=== PATIENT | male | born 1955 | race Caucasian/White ===

== ENCOUNTER 2017-09-27 10:08 | Emergency (ER) | payer MEDICARE ==
[~2017-09-27] VITALS: Ht 180.3 cm; Wt 122.0 kg
[~2017-09-27 10:08] MED LIST: ALEVE220 MG PO; ASPIRIN81 MG PO; CRESTOR10 MG PO; FISH OIL1000 MG PO; FUROSEMIDE20 MG PO; GLIPIZIDE5 MG PO; KLOR-CON M2020 MEQ PO; LORTAB 1010 MG PO; METFORMIN500 MG PO; METOPROL TAR25 MG PO; METOPROLOL50 MG OR; PLAVIX75 MG PO
[2017-09-27] MEDS ORDERED: LORTAB 1010 MG PO (11:20)
[2017-09-27] MEDS ORDERED: CEPHALEXIN500 MG PO (11:20)
[2017-09-27] MEDS ORDERED: BACTRIM DS1 TAB PO (11:20)
[2017-09-27 11:50] VITALS: BP 114/60
== END 2017-09-27 12:01 | disposition home or self-care (01) ==
LOC: ED 10:08
PROC: 0H96XZZ Drainage of Back Skin, External Approach (ICD-10-PCS; principal; 2017-09-27)
DX: L02.212 Cutaneous abscess of back [any part, except buttock and flank] (principal)

== ENCOUNTER 2017-09-28 11:40 | Emergency (ER) | payer MEDICARE ==
[~2017-09-28] VITALS: Ht 180.3 cm; Wt 122.0 kg
[~2017-09-28 11:40] MED LIST changes: +BACTRIM DS1 TAB PO; +CEPHALEXIN500 MG PO
[2017-09-28 12:55] VITALS: BP 135/77
== END 2017-09-28 12:55 | disposition home or self-care (01) ==
LOC: ED 11:40
DX: Z48.01 Encounter for change or removal of surgical wound dressing (principal)

== ENCOUNTER 2019-02-02 09:06 | Emergency (ER) | payer MEDICARE, MEDICAID ==
[~2019-02-02] VITALS: Ht 177.8 cm; Wt 114.0 kg
[~2019-02-02 09:06] MED LIST changes: +ALBUTEROL SUL0.083 % IN; +ASPIRIN325 MG PO; +CENTANY21 EX; +CLOPIDOGREL75 MG PO; +CRESTOR20 MG PO; +GABAPENTIN100 MG PO; +GLIPIZIDE10 MG PO; +IPRATROPIUM BR0.02 %; +NITRO-DUR0.4 MG/HR TD; +POTASSIUM CHLO10 MEQ PO; +QVAR80 MCG/ACT; +RAMIPRIL2.5 MG PO; +TEMAZEPAM30 MG PO; +TRICOR145 MG PO; +TRULICITY1.5 MG/0.5
[2019-02-02] MEDS ORDERED: ULTRAM50 M1 PO ×2 (11:21→14:01)
[2019-02-02] MEDS ORDERED: MEDDOSEPAK PO (11:21)
[2019-02-02 11:38] VITALS: BP 116/66
== END 2019-02-02 11:49 | disposition home or self-care (01) ==
LOC: ED 09:06
DX: M51.36 Other intervertebral disc degeneration, lumbar region (principal); M54.5 Low back pain; I10 Essential (primary) hypertension; Z95.5 Presence of coronary angioplasty implant and graft

== ENCOUNTER 2019-10-20 | Emergency (ER) | payer OTHER, MEDICARE ==
[~2019-10-20] MED LIST changes: +MEDDOSEPAK PO; +ULTRAM50 M1 PO
[2019-10-20] MEDS ORDERED: FLEXERIL PO (10:29)
[2019-10-20] MEDS ORDERED: ULTRAM50 M1 PO (10:29)
--- NOTE | 2019-11-05 10:44 | NUR ---
WE ATTEMPTED TO GET A CLEARANCE FROM DR KING ON MULTIPLE OCCASIONS. PER DR KING'S OFFICE PATIENT WAS A NO SHOW. WE ARE UNABLE TO PERFORM THE COLONOSCOPY WITHOUT CLEARANCE
[2019-12-15] MEDS ORDERED: METFORMIN500 M2 PO (13:56)
[2019-12-15] MEDS ORDERED: LASIX 20 MG TAB20 MG PO (13:56)
[2019-12-15] MEDS ORDERED: PROTONIX40 MG PO (13:57)
[2019-12-15] MEDS ORDERED: CLOPIDOGREL75 MG PO (13:57)
[2019-12-15] MEDS ORDERED: K-TABS10 MEQ PO (13:58)
[2019-12-15] MEDS ORDERED: GLIMEPIRIDE2 MG PO (13:59)
[2019-12-15] MEDS ORDERED: CYMBALTA60 MG PO (13:59)
== END 2019-10-20 10:49 | disposition home or self-care (01) | DRG 552 ==
DX: S33.5XXA Sprain of ligaments of lumbar spine, initial encounter (principal); J44.9 Chronic obstructive pulmonary disease, unspecified; E11.9 Type 2 diabetes mellitus without complications; I10 Essential (primary) hypertension; Z95.5 Presence of coronary angioplasty implant and graft; V49.40XA Driver injured in collision with unspecified motor vehicles in traffic accident, initial encounter

== ENCOUNTER 2019-12-13 | Emergency (ER) | payer MEDICARE, MEDICAID ==
[~2019-12-13] MED LIST changes: +FLEXERIL PO
[2019-12-13 11:08] LABS: HEMATOCRIT 42.3 % (39.0-50.0); HEMOGLOBIN 14.2 g/dl (14.0-18.0); IMMATURE GRANULOCYTES 1.3 % (0.0-5.0); MEAN CELL VOLUME 91.8 fL CALC (80.0-100.0); MEAN CORPUSCULAR HGB 30.8 pG CALC (26.0-32.0); MEAN CORPUSCULAR HGB CONC 33.6 g/dL CAL (32.0-36.0); NEUT# 5.99 thou/uL (1.82-7.42); RED BLOOD COUNT 4.61 mill/uL (4.70-6.10); RED CELL DISTRI WIDTH 12.9 % (11.5-15.5)
[2019-12-13 11:28] LABS: ALBUMIN 3.7 g/dL (3.2-5.0); ALKALINE PHOSPHATASE 106 u/l (38-126); BUN 16 mg/dL (8-23); BUN/CREATININE RATIO 28 (12-20 (CALC)); CHLORIDE 98 mmol/l (95-108); CREATININE 0.6 mg/dL (0.7-1.3); GFR > 60 ML/MIN (>=60 (CALC)); GFR FOR AFR.AMER. > 60 ML/MIN (>=60 (CALC)); POTASSIUM 4.7 mmol/l (3.5-5.1); SGOT/AST 23 u/l (19-48); SODIUM 131 mmol/l (137-146); TOTAL PROTEIN 6.9 g/dL (6.3-8.2)
[2019-12-13 11:29] LABS: ANION GAP 16 (6-22 (CALC)); BILIRUBIN, TOTAL 1.1 mg/dL (0.0-1.4); CARBON DIOXIDE 22 mmol/l (22-30)
[2019-12-13 12:29] LABS: URINE BILIRUBIN - DIPSTICK NEGATIVE (NEGATIVE); URINE BLOOD DIPSTICK NEGATIVE (NEGATIVE); URINE COLOR YELLOW; URINE GLUCOSE - DIPSTICK >=1000 mg/dL (NEGATIVE); URINE KETONE 15 mg/dL (NEGATIVE); URINE LEUK ESTERASE NEGATIVE (NEGATIVE); URINE NITRITE - DIPSTICK NEGATIVE (Negative); URINE PROTEIN - DIPSTICK NEGATIVE (NEG-TRACE); URINE UROBILINOGEN - DIPSTICK 0.2 E.U./dL (0.2)
[2019-12-15] MEDS ORDERED: METFORMIN500 M2 PO (13:56)
[2019-12-15] MEDS ORDERED: LASIX 20 MG TAB20 MG PO (13:56)
[2019-12-15] MEDS ORDERED: CLOPIDOGREL75 MG PO (13:57)
[2019-12-15] MEDS ORDERED: PROTONIX40 MG PO (13:57)
[2019-12-15] MEDS ORDERED: K-TABS10 MEQ PO (13:58)
[2019-12-15] MEDS ORDERED: GLIMEPIRIDE2 MG PO (13:59)
[2019-12-15] MEDS ORDERED: CYMBALTA60 MG PO (13:59)
== END 2019-12-13 14:56 | disposition home or self-care (01) ==
PROVIDERS: Family Medicine
DX: R06.02 Shortness of breath (principal); R10.84 Generalized abdominal pain; E11.9 Type 2 diabetes mellitus without complications; I10 Essential (primary) hypertension; J44.9 Chronic obstructive pulmonary disease, unspecified; Z20.828 Contact with and (suspected) exposure to other viral communicable diseases

== ENCOUNTER 2019-12-16 | Inpatient (IN) | payer MEDICARE, MEDICAID ==
--- NOTE | 2019-12-14 15:06 | NUR ---
PT TO ROOM VIA WC
--- NOTE | 2019-12-14 15:20 | NUR ---
PT CHANGED TO GOWN. MONITORS APPLIED. REPORTS CHEST PAIN LEFT UPPER CHEST SINCE 1000 TODAY. TOOK FAMOTADINE WITHOUT RELEIF. PAIN 5/10 CAUSING NAUSEA THIS MORNING BUT NONE NOW. PT HAS CARDIAC HISTORY.
[2019-12-14 15:31] LABS: HEMATOCRIT 40.9 % (39.0-50.0); HEMOGLOBIN 14.3 g/dl (14.0-18.0); IMMATURE GRANULOCYTES 1.9 % (0.0-5.0); MEAN CELL VOLUME 89.1 fL CALC (80.0-100.0); MEAN CORPUSCULAR HGB 31.2 pG CALC (26.0-32.0); NEUT# 8.55 thou/uL (1.82-7.42); RED BLOOD COUNT 4.59 mill/uL (4.70-6.10); RED CELL DISTRI WIDTH 13.1 % (11.5-15.5)
--- NOTE | 2019-12-14 15:39 | NUR ---
PT TOOK 325MG OF ASA 2 HOURS PRIOR TO ARRIVAL. BABY ASA HELD
[2019-12-14 15:44] LABS: ALBUMIN 3.5 g/dL (3.2-5.0); ALKALINE PHOSPHATASE 93 u/l (38-126); AMYLASE 61 u/l (30-110); ANION GAP 18 (6-22 (CALC)); BUN 21 mg/dL (8-23); BUN/CREATININE RATIO 24 (12-20 (CALC)); CARBON DIOXIDE 20 mmol/l (22-30); CHLORIDE 94 mmol/l (95-108); CREATININE 0.9 mg/dL (0.7-1.3); GFR > 60 ML/MIN (>=60 (CALC)); GFR FOR AFR.AMER. > 60 ML/MIN (>=60 (CALC)); LIPASE 85 u/l (23-300); POTASSIUM 4.8 mmol/l (3.5-5.1); SGOT/AST 23 u/l (19-48); SODIUM 127 mmol/l (137-146); TOTAL PROTEIN 6.9 g/dL (6.3-8.2)
[2019-12-14 15:51] LABS: BILIRUBIN, TOTAL 0.6 mg/dL (0.0-1.4)
[2019-12-14 15:55] LABS: MYOGLOBIN 62 ng/mL (0 - 121)
--- NOTE | 2019-12-14 16:25 | NUR ---
PT MEDICATED. GIVEN ICE CHIPS. URINE SENT TO LAB. PT RESTING COMFORTABLY ON STRETCHER.
[2019-12-14 17:00] LABS: URINE BILIRUBIN - DIPSTICK NEGATIVE (NEGATIVE); URINE BLOOD DIPSTICK NEGATIVE (NEGATIVE); URINE COLOR YELLOW; URINE GLUCOSE - DIPSTICK >=1000 mg/dL (NEGATIVE); URINE KETONE NEGATIVE (NEGATIVE); URINE LEUK ESTERASE NEGATIVE (NEGATIVE); URINE NITRITE - DIPSTICK NEGATIVE (Negative); URINE PH 5.5 (4.5-8.0); URINE PROTEIN - DIPSTICK 100 mg/dL (NEG-TRACE); URINE SPECIFIC GRAVITY 1.015; URINE UROBILINOGEN - DIPSTICK 0.2 E.U./dL (0.2)
--- NOTE | 2019-12-14 17:15 | NUR ---
ACCUCHECK DONE READ HIGH
[2019-12-14 17:20] LABS: URINE RBC 0-2 RBC/hpf (0-5)
--- NOTE | 2019-12-14 17:20 | NUR ---
TWO SETS OF BLOOD CULTURES DRAW AND SENT TO LAB
[2019-12-14 17:22] LABS: ACT PARTIAL THROMBO TIME 26.3 SECONDS (20.0-32.5); PROTHROMBIN TIME 10.9 SECONDS (9.0-12.5)
[2019-12-14 17:26] LABS: C-REACTIVE PROTEIN 1.4 mg/dL (0-0.9)
--- NOTE | 2019-12-14 17:55 | NUR ---
CENTRAL LINE STARTED IN RIGHT GROIN BY DR PRASAD
--- NOTE | 2019-12-14 18:30 | NUR ---
PT CONTINUES TO COMPLAIN OF BACK PAIN
--- NOTE | 2019-12-14 19:00 | NUR ---
REPORT GIVEN TO PAOLA MAGAÑA
--- NOTE | 2019-12-14 19:30 | NUR ---
PT SITTING UP ON SIDE OF BED HIS BACK HURTS TO LAY DOWN. MED RECON COMPLETED....PT QUIT TAKING HIS MEDS SEVERAL MONTHS AGO BECAUSE HE WASN'T ABLE TO GET UP IN THE MORNING.
--- NOTE | 2019-12-14 19:43 | NUR ---
attempted to call report. nurse will call back.
--- NOTE | 2019-12-14 20:18 | NUR ---
CALLED DR HIGGINBOTHAM AND UPDATED ON LACTIC ACID 3.0
--- NOTE | 2019-12-14 20:59 | NUR ---
SUSAN CALLED BACK FOR REPORT
--- NOTE | 2019-12-14 21:10 | NUR ---
TO ICU VIA STRETCHER WITH MONITOR/O2 @ 2LPM/MASK. PT AMBULATORY TO BED WITH ASSIST.
--- NOTE | 2019-12-14 21:15 | NUR ---
PT. ARRIVES VIA STRETCHER FROM ER. AMBULATORY WITH STEADY GAIT FROM ER STRETCHER TO ICU BED. INTRODUCED TO STAFF AND CALL LIGHT SYSTEM. PT. WITH MILD DYSPNEA ON EXERTION. AFEBRILE. PLACED ON MONITOR. SKIN WARM AND DRY. LUNG SOUNDS MORE DIMINISHED ON THE RIGHT. NO OTHER ADVENTITIOUS LUNG SOUNDS NOTED. PT. DENIES CP AT THIS TIME. C/O CHRONIC BACK PAIN. PT. ISOLATION FOR R/O COVID. BP/HR STABLE. SINUS ON THE MONITOR. CALL LIGHT WITHIN REACH. WILL CONTINUE TO [facility] MONITOR.
[2019-12-14 22:00] VITALS: BP 118/76
--- NOTE | 2019-12-14 22:45 | NUR ---
PT. PROVIDED WITH WATER AND [employer] CHOICE FROZEN MEAL AT THIS TIME. MEDICATED PER PHYSICIAN ORDERS. REMAINS IN ISOLATION FOR POSSIBLE COVID. RESPS REMAIN EVEN AND UNLABORED. CALL LIGHT REMIANS WITHIN REACH. WILL CONTINUE TO CLOSELY MONITOR.
[2019-12-14 23:00] VITALS: BP 116/66
[2019-12-15] VITALS (10 sets, daily range): BP systolic 82–124; BP diastolic 53–85
--- NOTE | 2019-12-15 00:30 | NUR ---
PT. MEDICATED PER PHYSICIAN ORDERS. REMAINS STABLE ON THE MONITOR IN SINUS RHYTHM. RESPS EVEN AND UNLABORED. PT. REMAINS WITH NOVOA. CALL LIGHT WITHIN REACH. WILL CONTINUE TO [place] MONITOR.
--- NOTE | 2019-12-15 01:49 | NUR ---
PT. PROVIDED WITH INHALER AND SLEEPING PILL PER HIS REQUEST. DENIES OTHER COMPLAINT OR NEEDS AT THIS TIME. CALL LIGHT REMAINS WITHIN REACH.
--- NOTE | 2019-12-15 02:15 | NUR ---
PT. RESTING IN BED. LEADS REPLACED AT THIS TIME. BP/HR STABLE. PT. VOICES NO COMPLAINTS OF NEEDS. CALL LIGHT REMAINS WITHIN REACH. WILL CONTINUE TO CLOSELY MONITOR.
--- NOTE | 2019-12-15 04:05 | NUR ---
PT. RESTING ON RT. SIDE IN NO DISTRESS. SKIN REMAINS WARM AND DRY. AFEBRILE. BP/HR STABLE. CALL LIGHT REMAINS WITHIN REACH. VOICES NO COMPLAINTS OR NEEDS.
--- NOTE | 2019-12-15 05:00 | NUR ---
LABS OBTAINED AND SENT. PT. REMAINS STABLE, UNCHANGED.
[2019-12-15 05:51] LABS: HEMATOCRIT 41.6 % (39.0-50.0); HEMOGLOBIN 14.4 g/dl (14.0-18.0); IMMATURE GRANULOCYTES 2.7 % (0.0-5.0); MEAN CELL VOLUME 90.4 fL CALC (80.0-100.0); MEAN CORPUSCULAR HGB 31.3 pG CALC (26.0-32.0); MEAN CORPUSCULAR HGB CONC 34.6 g/dL CAL (32.0-36.0); NEUT# 8.9 thou/uL (1.82-7.42); RED BLOOD COUNT 4.6 mill/uL (4.70-6.10); RED CELL DISTRI WIDTH 13.3 % (11.5-15.5)
[2019-12-15 06:20] LABS: ALBUMIN 3.4 g/dL (3.2-5.0); ALKALINE PHOSPHATASE 94 u/l (38-126); ANION GAP 17 (6-22 (CALC)); BILIRUBIN, TOTAL 0.6 mg/dL (0.0-1.4); BUN 27 mg/dL (8-23); BUN/CREATININE RATIO 19 (12-20 (CALC)); CARBON DIOXIDE 19 mmol/l (22-30); CHLORIDE 96 mmol/l (95-108); CREATININE 1.4 mg/dL (0.7-1.3); GFR 51 ML/MIN (>=60 (CALC)); GFR FOR AFR.AMER. > 60 ML/MIN (>=60 (CALC)); POTASSIUM 4.8 mmol/l (3.5-5.1); SGOT/AST 21 u/l (19-48); SODIUM 128 mmol/l (137-146); TOTAL PROTEIN 6.4 g/dL (6.3-8.2)
--- NOTE | 2019-12-15 06:45 | NUR ---
REPORT RECEIVED FROM SUSAN MAGAÑA. VSS STABLE ON MONITOR. CARE ASSUMED.
--- NOTE | 2019-12-15 08:30 | NUR ---
PT SITTING UP ON SIDE OF BED AT THIS TIME. RESP ARE EVEN AND UNLABORED. PT IS ALERT AND ORIENTED X3. SHIFT ASSESSMENT COMPLETED AT THIS TIME. DR STEVENSON AT BEDSIDE. PT SET UP FOR AM MEAL AT THIS TIME WELL. IV PATENT X2. CALL LIGHT IN REACH. WILL CONTINUE TO MONIOTR.
--- NOTE | 2019-12-15 10:00 | NUR ---
PT PROVIDED AND ASSISTED WITH AM CARE BY MANAGER SUPPLY AND ASSISTED TO SIT UP IN BEDSIDE CHAIR. RESP ARE EVEN AND UNLABORED. NO DISTRESS NOTED. VSS ON MONITOR. CALL LIGHT IN REACH. WILL CONTINUE TO MONITOR
--- NOTE | 2019-12-15 10:30 | NUR ---
PT PERFORMANCE IMPROVEMENT CONSULTANT LIGHT REQUESTING PAIN MEDICATION
--- NOTE | 2019-12-15 11:00 | NUR ---
BLOOD SUGAR 555 DR STEVENSON NOTIFIED NEW ORDERS RECEIVED.
--- NOTE | 2019-12-15 11:30 | NUR ---
PHONED SPOUSE IDALMIS TO UPDATE HOME MEDICATION LIST
--- NOTE | 2019-12-15 12:00 | NUR ---
PT MEDICATED PER MAR WITH PAIN MEDICAITON AND INSULIN. PT SET UP FOR NOON MEAL. PT ENCOURAGE TO ELEVATE FEET DU TO SWEELING. PT VERBALIZED UNDERSTANDING. PT LAYED BACK IN BED.
--- NOTE | 2019-12-15 12:23 | NUR ---
PT SEEN TO BE STANDING UP NEXT TO BED AND THEN SITTING UP IN CHAIR AT BEDSIDE WITH FEET DANGLING.
--- NOTE | 2019-12-15 13:53 | NUR ---
PT RESTING IN BED WITH EYES CLOSED AT THIS TIME. RESO ARE EVEN AND UNLABORED. VSS ON MONITOR. CALL LIGHT IN REACH. WILL CONTINUE TO MONITOR.
--- NOTE | 2019-12-15 16:00 | NUR ---
PT SITTING UP ON SIDE OF BED. RESP ARE EVEN AND UNLABORED. VSS ON MONITOR. CALL LIGHT IN REACH. WILL CONTINUE TO MONITOR.
--- NOTE | 2019-12-15 17:22 | NUR ---
DR STEVENSON NOTIFIED OF ACCUCHECK OF 442, RBVO FOR 15UNITS OF NOVOLOG.
--- NOTE | 2019-12-15 17:59 | NUR ---
PT SITTING UP ON SIDE OF BED. PT REPORTS THAT PAIN IS MUCH IMPROVED AT THIS TIME. RESP ARE EVEN AND UNLABORED. VSS ON MONITOR. CALL LIGHT IN REACH. WILL CONTINUE TO MONITOR.
--- NOTE | 2019-12-15 18:07 | NUR ---
PT ASSISTED TO BATHROOM FOR BM. PT REFUSED TO USE BSC.
--- NOTE | 2019-12-15 18:45 | NUR ---
REPORT FROM Tyrone GREER RN. ASSUMED PT. CARE.
--- NOTE | 2019-12-15 19:15 | NUR ---
PT. FOUND SITTING UP IN BED IN NO DISTRESS. RESPS EVEN AND UNLBAORED. DYSPNEA ON EXERTION. DIMINISHED LUNG SOUNDS THROUGHOUT. SPO2 98% ON 2L VIA NC. BOWEL SOUNDS ACTIVE. PT. REPORTS NO BM TODAY. REPORTS 5/10 BACK PAIN AT THIS TIME. REQUESTING HIS SLEEPING PILL AT 8;30. UPDATED THAT I WOULD GIVE HIM HIS SLEEPING PILL WITH HIS 9PM MEDS VERBALIZES UNDERSTANDING. CALL LIGHT WITHIN REACH. PT. LOWER EXT EDEMA APPEARS IMPROVED FROM PRIOR NIGHT. DISTIL PULSES INTACT. WILL CONTINUE TO CLOSELY MONITOR.
--- NOTE | 2019-12-15 20:15 | NUR ---
PT. COVID SWAB NEGATIVE. MADE AWARE. MOVED FROM ISOLATION ROOM #2 TO ROOM #4 AT THIS TIME. IV REMOVED FROM LT. AC PER PATIENT REQUEST, REMAINS WITH CENTRAL LINE TO RT. FEMORAL. CALL LIGHT PLACED WITHIN REACH. WILL CONTINUE TO MONITOR.
--- NOTE | 2019-12-15 21:05 | NUR ---
ACCUCHECK READS HIGH. MADE AWARE, NEW ORDERS FOR INSULIN DRIP RECEIVED. WILL INITIATE WHEN CARDINAL PROFILES THE MEDICATION.
[2019-12-15 21:14] LABS: CREATININE 1.5 mg/dL (0.7-1.3); POTASSIUM 4.7 mmol/l (3.5-5.1)
--- NOTE | 2019-12-15 22:05 | NUR ---
PT. UPDATED ON CURRENT CONDITION AND PLAN FOR THE NIGHT. VERBALIZES UNDERSTANDING. PT. REMAINS STABLE. BP SLIGHTLY LOW AT 86/52. WILL CONTINUE TO MONITOR AND ASSESS BLOOD SUGAR EVERY HOUR ORDERED.
--- NOTE | 2019-12-15 23:09 | NUR ---
ACCUCHECK NOW 406. WILL CONTINUE AT 5 UNITS/HR.
[2019-12-16] VITALS (19 sets, daily range): BP systolic 73–111; BP diastolic 50–88
[~2019-12-16] MED LIST changes: +CYMBALTA60 MG PO; +GLIMEPIRIDE2 MG PO; +K-TABS10 MEQ PO; +LASIX 20 MG TAB20 MG PO; +METFORMIN500 M2 PO; +PROTONIX40 MG PO
--- NOTE | 2019-12-16 00:30 | NUR ---
PT. INTERMITTENTLY FOUND SITTING UP AT THE SIDE OF THE BED DROWSY AND UNSTEADY. ASSISTED BACK TO BED. RESPS EVEN AND UNLABORED. INSULIN DRIP INFUSING AT 4 UNITS/HR AT THIS TIME. WILL CONTINUE TO CLOSELY MONITOR. MD MADE AWARE OF LOWER BP. WILL BOLUS ORDERED.
--- NOTE | 2019-12-16 01:00 | NUR ---
ACCUCHECK NOW 287. INSULIN DRIP DECREASED TO 3 UNITS/HR. WILL CONTINUE TO CLOSELY MONITOR.
--- NOTE | 2019-12-16 01:18 | NUR ---
PT. REMAINS HYPOTENSIVE. MD MADE AWARE. CONTINUES ON INSULIN DRIP AT 4 UNITS/HR. NEW ORDERS RECEIVED FOR FLUID BOLUS. CALL LIGHT REMAINS WITHIN REACH. PT. INTERMITTENTLY WILL SIT UP AT THE SIDE OF THE BED, BUT IS DROWSY AND WOBBLY. ASSISTED BACK TO BED AND CONFERRED IMPORTANCE OF CONTINUING TO LAY DOWN AT THIS TIME DUE TO HIS BLOOD PRESSURE.
[2019-12-16 01:57] LABS: CREATININE 1.8 mg/dL (0.7-1.3); POTASSIUM 4.5 mmol/l (3.5-5.1)
--- NOTE | 2019-12-16 02:09 | NUR ---
ACCUCHECK NOW 246. WILL CONTINUE AT 3 UNITS/HR AT THIS TIME. PT. RESTING WITH EYES CLOSED LAYING ON RT. SIDE. NO DISTRESS. REMAINS HYPOTENSIVE. WILL CONTINUE TO MONITOR.
--- NOTE | 2019-12-16 04:02 | NUR ---
PT. REMAINS STABLE ON THE MONITOR SLEEPING ON HIS ABDOMEN. HE HAS REMOVED HIS OXYGEN AND HIS O2 SAT IS 88% AT THIS TIME. REMAINS AFEBRILE. FAN REMAINS IN PLACE. PT. HAS ALSO REMOVED IS GOWN AT THIS TIME. WILL CONTINUE TO MONITOR.
--- NOTE | 2019-12-16 04:50 | NUR ---
THIS RN AT BEDSIDE. PT. REMAINS DROWSY AND INTERMITTENTLY CONFUSED. PT. HAS REMOVED ALL LINES, GOWN AND BP CUFF. INSULIN DRIP CONTINUES AT 3 UNITS/HR AND FLUIDS AT KVO. PT REORIENTED TO SITUATION AND ALL MONITOR LINES REPLACED. SPO2 IS 96% ON 2L NC. REPOSITIONED FOR COMFORT. LABS OBTAINED FROM RT. FEMORAL CENTRAL LINE. WILL CONTINUE TO CLOSELY MONITOR.
[2019-12-16 05:45] LABS: CREATININE 1.9 mg/dL (0.7-1.3); POTASSIUM 4.9 mmol/l (3.5-5.1)
--- NOTE | 2019-12-16 06:04 | NUR ---
RT AT BEDSIDE TO PERFORM EKG AT THIS TIME.
--- NOTE | 2019-12-16 07:00 | NUR ---
PT RESTING IN BED WITH EYES CLOSED. AROUSES TO VERBAL STIMULI. PT IS ALERT AND OREINTED X3. SHIFT ASSESSMENT COMPLETED AT THIS TIME. IV PATENT X1. PT STATES THAT HE NEEDS A PAIN PILL. EXPLAINED THAT HIS BP IS STILL ON THE LOWER SIDE WILL REASSESS IN ONE HOUR. PT VERBALIZED UNDERSTANDING. CALL LIGHT IN REACH. WILL CONTINUE TO MONITOR.
--- NOTE | 2019-12-16 07:45 | NUR ---
PT SET UP FOR AM MEAL
--- NOTE | 2019-12-16 08:50 | NUR ---
DR STEVENSON AT BEDSIDE
--- NOTE | 2019-12-16 09:13 | NUR ---
LABS DRAWN FROM [facility].
--- NOTE | 2019-12-16 09:30 | NUR ---
NPTIFIED DR FIGUEROA VOICEMAIL LEFT
[2019-12-16 09:54] LABS: ALBUMIN 3.5 g/dL (3.2-5.0); BILIRUBIN, TOTAL 0.6 mg/dL (0.0-1.4); CREATININE 1.9 mg/dL (0.7-1.3); POTASSIUM 4.8 mmol/l (3.5-5.1); TOTAL PROTEIN 6.7 g/dL (6.3-8.2)
--- NOTE | 2019-12-16 09:58 | NUR ---
BROWNLEE CATHETER PLACED USING STERILE TECHNIQUE IMMEADIATE RETURN OF JD URINE. PT TOLERATED WELL.
[2019-12-16 11:41] LABS: URINE BLOOD DIPSTICK TRACE-INTACT (NEGATIVE); URINE COLOR YELLOW; URINE GLUCOSE - DIPSTICK NEGATIVE (NEGATIVE); URINE KETONE NEGATIVE (NEGATIVE); URINE LEUK ESTERASE TRACE (Negative); URINE NITRITE - DIPSTICK NEGATIVE (Negative); URINE PROTEIN - DIPSTICK 30 mg/dL (NEG-TRACE); URINE SPECIFIC GRAVITY >=1.030
--- NOTE | 2019-12-16 11:48 | NUR ---
PT SET UP FOR NOON MEAL THEN STATED HE NEEDED TO HAVE A BOWEL MOVEMENT PT RENEE TO AMBULATED TO BATHROOM INSTRUCTED TO USE CALL LIGHT FOR ASSISTANCE WHEN FINISHED.
[2019-12-16 11:58] LABS: URINE BILIRUBIN - DIPSTICK NEGATIVE (NEGATIVE); URINE CLARITY HAZY
[2019-12-16 12:05] LABS: URINE RBC 0-2 RBC/hpf (0-5)
[2019-12-16 12:06] LABS: URINE AMORPH SEDIMENT MODERATE hpf (NONE-FER)
--- NOTE | 2019-12-16 12:20 | NUR ---
PT REFUSING TO LEAVE RESTROOM UNTIL HE HAS BM.
--- NOTE | 2019-12-16 12:30 | NUR ---
PT PROVIDED WARM PRUNE JUICE AND MOM PER OCT.
--- NOTE | 2019-12-16 13:51 | NUR ---
PT ASSISTED BACK TO BED. NO BM AT THIS TIME. PT PLACED BACK ON MONITOR AND IVF. CALL LIGHT IN REACH. WILL CONTINUE TO MONITOR.
--- NOTE | 2019-12-16 14:31 | NUR ---
PT HEAD LIBRARIAN LIGHT DUE TO BEING COLD. PT ASSISTED TO LAY DOWN. WARM BLANKET PROVIDED. CALL LIGHT IN REACH. WILL CONTINUE TO MONITOR.
--- NOTE | 2019-12-16 15:47 | NUR ---
SPOKE TO IDALMIS AND UPDATED HER ON PATIENT STATUS
--- NOTE | 2019-12-16 15:49 | NUR ---
ASSUMED CARE FROM ARCHANA ALCANTAR. PT RESTING IN BED WITH EYES CLOSED. NO DISTRESS NOTED. WILL CONTINUE TO MONITOR
--- NOTE | 2019-12-16 15:56 | NUR ---
PT AMBULATED TO BATHROOM.
--- NOTE | 2019-12-16 16:00 | NUR ---
PT BACK TO BED FROM BATHROOM. NO DISTRESS NOTED. NO SOB NOTED. PT GIVEN BLANKET. WILL CONTINUE TO MONITOR
--- NOTE | 2019-12-16 16:44 | NUR ---
PT NOTED TO HAVE BLOODY URINE. TEMP 95.[address] STEVENSON NOTIFIED. BLOOD CULTURES ORDERED. LUIS MIGUEL SINHA ORDERED AND PLACED ON PATIENT. CONTINUE FLUIDS. WILL CONTINUE TO MONITOR.
--- NOTE | 2019-12-16 17:38 | NUR ---
PT GIVEN PHONE TO CALL
--- NOTE | 2019-12-16 17:40 | NUR ---
UPDATED DIL LAZARO ABOUT PATIENT STATUS
--- NOTE | 2019-12-16 18:08 | NUR ---
PT HAD RHYTHM CHANGE ON MONITOR. DR. STEVENSON NOTIFIED. EKG AND TROPONIN ORDERED. WILL CONTINUE TO MONITOR.
--- NOTE | 2019-12-16 18:45 | NUR ---
REPORT FROM ARCHANA GAMBOA. ASSUMED PT. CARE.
--- NOTE | 2019-12-16 18:48 | NUR ---
PT RESTING IN BED. BEAR HUGGER ON. TEMP INCREASING. FLUIDS RUNNING PER MD ORDER. NO DISTRESS NOTED. REPORT TO BE GIVEN TO NIGHT NURSE.
--- NOTE | 2019-12-16 19:04 | NUR ---
DR. STEVENSON NOTIFIED OF EKG AND TROP RESULTS. EKG SHOWS NSR. TROP NEGATIVE
--- NOTE | 2019-12-16 19:14 | NUR ---
DR STEVENSON NOTIFIED OF PT FIRM STOMACH AND PT UNABLE TO HAVE A BM. CONSULT FOR DR. ANDREWS PLACED
--- NOTE | 2019-12-16 19:15 | NUR ---
PT. ASSISTED TO SITTING UP AT BEDISE TO EAT SUPPER. PT. C/O PAIN TO THE TIP OF HIS PENIS AND HE STATES HE BELIEVES THE BROWNLEE IS NOT WORKING. NO BLEEDING OR LEAKING NOTED FROM MEATUS. URINE FROM BROWNLEE DOES APPEAR TO BE JAIDEN COLORED. WILL CONTINUE TO CLOSELY MONITOR.
--- NOTE | 2019-12-16 19:45 | NUR ---
ABDOMEN VERY DISTENDED AND HYPERTYMPANIC. BOWEL SOUNDS HYPOACTIVE. LUNGS WITH BETTER AERATION TODAY, BUT REMAINS DIMINISHED. 2+ LOWER EXT EDEMA. BP FLUCTUATING FROM 70'S SYSTOLIC TO 100'S SYSTOLIC. UPDATED ON PLAN OF CARE FOR THE EVENING. ALEXANDER HUGGER REMOVED. TEMP NOW 97.3. CALL LIGHT REMAINS WITHIN REACH. WILL CONTINUE TO CLOSELY MONITOR.
--- NOTE | 2019-12-16 20:02 | NUR ---
PT. ASSISTED TO RESTROOM AT THIS TIME. REMAINS WTIH DYSPNEA ON EXERTION. PT. WILL CALL WHEN HE IS FINISHED HE IS UNSTEADY ON HIS FEET WALKING.
--- NOTE | 2019-12-16 21:45 | NUR ---
PT. MEDICATED PER PHSYICIAN ORDERS. CALL LIGHT REMAINS WITHIN REACH PROVIDE WITH SHEET AND FAN PER REQUEST. PT. JUST TOOK ANOTHER PRUNE JUICE AT THIS TIME. IV FLUIDS INFUSING AT 100 CC/HR ORDERED. SKIN COOL AND DRY. WILL CONTINUE TO CLOSELY MONITOR.
--- NOTE | 2019-12-16 22:20 | NUR ---
PT. DOWN TO RADIOLOGY FOR KUB.
[2019-12-16 23:02] LABS: ACT PARTIAL THROMBO TIME 26.4 SECONDS (20.0-32.5); INTERNATIONAL NORMALIZED RATIO 1.1 RATIO (0.7-1.3); PROTHROMBIN TIME 11.3 SECONDS (9.0-12.5)
--- NOTE | 2019-12-16 23:19 | NUR ---
MAXIPIME INFUSED. NO REACTIONS NOTED. FLAGYL INITIATED ORDERED.
--- NOTE | 2019-12-16 23:55 | NUR ---
14 F NG TUBE PLACED TO LIT. PT. TOLERATED WITH MILD DIFFICULTY. PLACEMENT VERIFIED BY AUSCULTATION OVER STOMACH AND NOTED RETURN OF GREEN GASTRIC CONTENT.
[2019-12-17] VITALS (11 sets, daily range): BP systolic 77–111; BP diastolic 56–72
--- NOTE | 2019-12-17 00:23 | NUR ---
ZOSYN INFUSING AT THIS TIME. PT. REMAINS STABLE. CALL LIGHT WITHIN REACH. WILL CONTINUE TO CLOSELY MONITOR.
--- NOTE | 2019-12-17 00:26 | NUR ---
LAB AT BEDSIDE TO DRAW PT.
--- NOTE | 2019-12-17 00:56 | NUR ---
PT REMAINS STABLE SITTING UP IN CHAIR AT BEDSIDE. CALL LIGHT REMAINS WITHIN REACH. IV FLUIDS INFUSING ORDERED.
[2019-12-17 04:52] LABS: HEMATOCRIT 45.4 % (39.0-50.0); HEMOGLOBIN 15.4 g/dl (14.0-18.0); MEAN CELL VOLUME 91.3 fL CALC (80.0-100.0); MEAN CORPUSCULAR HGB CONC 33.9 g/dL CAL (32.0-36.0); RED BLOOD COUNT 4.97 mill/uL (4.70-6.10); RED CELL DISTRI WIDTH 14.3 % (11.5-15.5)
--- NOTE | 2019-12-17 05:05 | NUR ---
SECOND DOSE OF ORAL CONTRAST PUSHED VIA NG TUBE AT THIS TIME. PT. ASSISTE TO BSC HE BELIEVES HE MAY HAVE A BM. STATES HE DOES FEEL LIKE HIS BREATHING IS IMPROVING AT THIS TIME.
[2019-12-17 05:10] LABS: ALBUMIN 3.9 g/dL (3.2-5.0); BILIRUBIN, TOTAL 0.7 mg/dL (0.0-1.4); CREATININE 2.4 mg/dL (0.7-1.3); MAGNESIUM 2.3 mg/dL (1.6-2.3); TOTAL PROTEIN 7.3 g/dL (6.3-8.2)
[2019-12-17 05:11] LABS: POTASSIUM 5.3 mmol/l (3.5-5.1)
--- NOTE | 2019-12-17 06:45 | NUR ---
BEDSIDE REPORT RECEIVED FROM Jim QUINTEROS RN. CARE ASSUMED.
--- NOTE | 2019-12-17 07:00 | NUR ---
PT SITTING UP IN CHAIR AT BEDSIDE. PT IS ALERT AND ORIENTED X3. SHIFT ASSESSMENT COMPLETED AT THIS TIME. IV PATENT X1. CALL LIGHT IN REACH. WILL CONTINUE TO MONITOR.
--- NOTE | 2019-12-17 07:35 | NUR ---
DR STEVENSON PHONED UNIT WITH CRITICAL RESULTS OF CT SCAN AND ORDERS TO INTITATE TRANSFER TO [facility]. PHONED [facility] SPOKE WITH ERIN TO INITIATE TRANSFER. FACE SHEET FAXED TO [phone].
--- NOTE | 2019-12-17 08:02 | NUR ---
PHONED IDALMIS DAY AND UPDATED ON TRANSFER CONNECTED TO CORDLESS PHONE AND PATIENT TALKED WITH WELL.
--- NOTE | 2019-12-17 08:47 | NUR ---
DR STEVENSON AT BEDSIDE AT THIS TIME.
--- NOTE | 2019-12-17 08:57 | NUR ---
DR STEVENSON NOTIFIED OF PROLONGED HYPOTENSION WELL.
--- NOTE | 2019-12-17 09:00 | NUR ---
PT AMBULATED TO RESTROOM FOR ATTEMPTS FOR BM.
--- NOTE | 2019-12-17 09:07 | NUR ---
PHONED [facility] SPOKE WITH LAZARO PT WILL BE GOING TO [address] TERRAZAS IS ACCEPTING [phone] IS THE NUMBER FOR REPORT.
--- NOTE | 2019-12-17 09:10 | NUR ---
PHONED [facility] TO ARRANGE TRANSPORT. ETA 30 MINUTES.
--- NOTE | 2019-12-17 09:30 | NUR ---
LEVOPHED STARTED AT 8MCG PER MAR. PT REFUSING TO LEAVE RESTROOM UNTIL TRANSPORT ARRIVES. WNILL CONTINUE TO CLOSELY MONITOR
--- NOTE | 2019-12-17 09:52 | NUR ---
[facility] HERE FOR TRANSPORT AT THIS TIME. REPORT PROVIDED.
--- NOTE | 2019-12-17 10:15 | NUR ---
PT LEFT VIA [facility] TO [facility] IN STABLE CONDITION. ON IV PUMP AND ONE ALEXANDER HUGEER SENT WITH [facility]
--- NOTE | 2019-12-17 10:40 | NUR ---
REPORT CALLED TO JAMES AT [phone]
== END 2019-12-17 10:15 | disposition short-term general hospital (02) | DRG 871 ==
PROVIDERS: Internal Medicine; ADMIT Internal Medicine
PROC: 06HY33Z Insertion of Infusion Device into Lower Vein, Percutaneous Approach (ICD-10-PCS; principal; 2019-12-14)
DX: A41.9 Sepsis, unspecified organism (principal); J18.9 Pneumonia, unspecified organism; N17.0 Acute kidney failure with tubular necrosis; E11.10 Type 2 diabetes mellitus with ketoacidosis without coma; E87.1 Hypo-osmolality and hyponatremia; I30.9 Acute pericarditis, unspecified; R06.03 Acute respiratory distress; J43.9 Emphysema, unspecified; I10 Essential (primary) hypertension; I25.10 Atherosclerotic heart disease of native coronary artery without angina pectoris; K74.60 Unspecified cirrhosis of liver; E78.5 Hyperlipidemia, unspecified; F17.210 Nicotine dependence, cigarettes, uncomplicated; T50.8X5A Adverse effect of diagnostic agents, initial encounter; T38.3X6A Underdosing of insulin and oral hypoglycemic [antidiabetic] drugs, initial encounter; Z91.128 Patient's intentional underdosing of medication regimen for other reason; Z95.5 Presence of coronary angioplasty implant and graft; R06.02 Shortness of breath; R05 Cough; R10.84 Generalized abdominal pain; E11.9 Type 2 diabetes mellitus without complications; J44.9 Chronic obstructive pulmonary disease, unspecified
CPT/HCPCS: J0692; Q9967

== ENCOUNTER 2020-01-16 14:06 | Observation (INO) | payer MEDICARE ==
--- NOTE | 2020-01-16 14:22 | NUR ---
PT TO ROOM PER W/C
[2020-01-16 15:11] LABS: HEMATOCRIT 38.9 % (39.0-50.0); HEMOGLOBIN 12.8 g/dl (14.0-18.0); IMMATURE GRANULOCYTES 0.4 % (0.0-5.0); MEAN CELL VOLUME 90.3 fL CALC (80.0-100.0); MEAN CORPUSCULAR HGB 29.7 pG CALC (26.0-32.0); MEAN CORPUSCULAR HGB CONC 32.9 g/dL CAL (32.0-36.0); NEUT# 5.58 thou/uL (1.82-7.42); RED BLOOD COUNT 4.31 mill/uL (4.70-6.10)
[2020-01-16 15:14] LABS: URINE BILIRUBIN - DIPSTICK NEGATIVE (NEGATIVE); URINE BLOOD DIPSTICK TRACE-INTACT (NEGATIVE); URINE COLOR YELLOW; URINE GLUCOSE - DIPSTICK >=1000 mg/dL (NEGATIVE); URINE KETONE NEGATIVE (NEGATIVE); URINE LEUK ESTERASE NEGATIVE (NEGATIVE); URINE NITRITE - DIPSTICK NEGATIVE (Negative); URINE PROTEIN - DIPSTICK 100 mg/dL (NEG-TRACE); URINE UROBILINOGEN - DIPSTICK 0.2 E.U./dL (0.2)
--- NOTE | 2020-01-16 15:20 | NUR ---
PT RESTING ON STRETCHER; NO S/S OF DISTRESS NOTED; VSS; MONITORING DEVICES IN PLACE; PT ADVISED OF CONTINUED WAIT TIME; WILL CONTINUE TO MONITOR
[2020-01-16 15:24] LABS: URINE SQUAMOUS EPITHELIAL CELL FEW EPI/hpf (0-FEW)
[2020-01-16 15:28] LABS: INTERNATIONAL NORMALIZED RATIO 1.1 RATIO (0.7-1.3)
[2020-01-16 15:29] LABS: ALBUMIN 3.9 g/dL (3.2-5.0); ALKALINE PHOSPHATASE 105 u/l (38-126); ANION GAP 12 (6-22 (CALC)); BILIRUBIN, TOTAL 0.6 mg/dL (0.0-1.4); BUN 11 mg/dL (8-23); BUN/CREATININE RATIO 19 (12-20 (CALC)); CARBON DIOXIDE 30 mmol/l (22-30); CHLORIDE 95 mmol/l (95-108); CREATININE 0.6 mg/dL (0.7-1.3); GFR > 60 ML/MIN (>=60 (CALC)); GFR FOR AFR.AMER. > 60 ML/MIN (>=60 (CALC)); POTASSIUM 3.3 mmol/l (3.5-5.1); SGOT/AST 20 u/l (19-48); SODIUM 134 mmol/l (137-146); TOTAL PROTEIN 7.8 g/dL (6.3-8.2)
[2020-01-16 15:41] LABS: MYOGLOBIN 22 ng/mL (0 - 121)
--- NOTE | 2020-01-16 16:20 | NUR ---
PT ADVISED OF INCREASED BGL; PT STATES HIS SUGAR IS ALWAYS HIGH; PT MEDICATED PER MAR; ADVISED OF CONTINUE WAIT TIME; WILL CONTINUE TO MONITOR
--- NOTE | 2020-01-16 17:20 | NUR ---
PT SITTING UP ON SIDE OF STRETCHER; NO S/S OF DISTRESS NOTED; VSS; PT ADVISED OF CONTINUED TESTING AND WAIT TIME; VSS; PT DENIES ANY NEEDS AT THIS TIME; IV ANTIBIOTICS INFUSING; WILL CONTINUE TO MONITOR
--- NOTE | 2020-01-16 18:20 | NUR ---
DR WATTS AT BEDSIDE TO DISCUSS POC AND FINDINGS
--- NOTE | 2020-01-16 18:59 | NUR ---
REPORT TO ARCHANA GUEVARA
--- NOTE | 2020-01-16 19:14 | NUR ---
TYLENOL 650 MG PO GIVEN FOR HEADACHE. PT SITTING UP IN CHAIR. RESTING. C/O VAGUE HEADACHE. REQUESTED TYELNOL.
--- NOTE | 2020-01-16 19:46 | NUR ---
REPORT TO LONNIE/ICU FOR MED-SURG OVERFLOW.
--- NOTE | 2020-01-16 19:50 | NUR ---
TO FLOOR VIA W/C WITH O2 @ 2 LPM NC. PT A/O NAD. STATES HEADACHE IS BETTER AFTER TYELNOL.
--- NOTE | 2020-01-16 20:05 | NUR ---
PT ARRIVES VIA WHEELCHAIR ACCOMPANIED BY ER NURSE. PT WALKS TO RESTROOM, URINAL PROVIDED FOR ACCURATE URINE MEASUREMENT. PT ABLE TO WALK TO BED SAFELY. ALERT AND ORIENTED X4. SATS 97% ON 2 L/MIN NC. SOB WITH EXERTION. PT EXPRESSES HOW MUCH BETTER HE FEELS NOW THAN WHEN HE CAME IN. NURSING ASSESSMENT PERFORMED. ADMISSION COMPLETED. PT ANSWERS ALL QUESTIONS AND FOLLOWS ALL COMMANDS. SELF REPOSITIONS. ST ON TELEMETRY, HR RANGES 98 BPM-103 BPM. AFEBRILE. BP W/I NORMAL RANGE. RAC 20 G IV INTACT, SALINE LOCKED. POC FOR TONIGHT DISCUSSED, PT UNDERSTANDS AND AGREES. REPORTS LAST BM 01/15/20, REPORTS HE HAD NO HAD ONE 4-5 DAYS PRIOR TO 01/14. PT REPORTS HE HAD TO HAVE AN NG TUBE ONE TIME WHEN HE WAS HOSPITALIZED BECAUSE HE HAD BEEN "CONSTIPATED." PT REPORTS HE JUST GOT DIAGNOSED WITH CANCER IN THE BLOOD ON HIS LAST HOSPITALIZATION AT [facility] AND WHICH HE WAS DC'S 12/26/19, PT IS NOT SURE WHAT KIND OF CANCER, REPORTS HE HAS BEEN DOING ALL KINDS OF TESTS AND JUST HAD A PET SCAN ON 01/14/20. PT REPORTS ON HIS LAST HOSPITALIZATION AT [facility] LAST MONTH HE HAD CHF AND HAD TO HAVE "A TUBE IN HIS CHEST AND RIGHT SIDE OF STOMACH TO PULL FLUIDS OUT." BS TAKEN, 377 MG/DL. WEIGHT TAKEN. CALL LIGHT WITHIN REACH. WILL CONTINUE TO MONITOR.
[2020-01-16 20:10] VITALS: BP 120/81
--- NOTE | 2020-01-16 20:57 | NUR ---
CALLED AND SPOKE TO DR QUIROZ TO NOTIFY ABOUT PHARMACY NEEDS CLARIFICATION ON ROCEPHIN, NEW ORDERS FOR MD APPROVAL THAT PT CAN HAVE ROCEPHIN ORDERED, ALSO WANTED TO CLARIFY OF NS AT 100 ML/HR ORDERED, PT HAS ELEVATED BNP AND L-PLEURAL EFFUSION SEEN ON CXR AND CT OF THORAX, DR QUIROZ ORDERS TO HOLD FLUIDS AT THIS MOMENT. DR QUIROZ ALSO ORDERS TO CLARIFY HOME MEDICATIONS, WILL CALL TO BRING IN LIST.
--- NOTE | 2020-01-16 21:00 | NUR ---
ATTEMPTED TO CALL TWO DIFFERENT PHONE NUMBERS PROBVIDED ON PT'S CHART TO REACH HIS IADLMIS DAY, : A MALE ANSWERED AND REPORTS IS NOT THERE AT THE MOMENT. [phone]: NUMBER NOT IN SERVICE.
--- NOTE | 2020-01-16 21:26 | NUR ---
PT ABLE TO TOLERATE PO MEDICATIONS, INSLIN AND LOVENOX INJECTION. USES URINAL AND STANDS ON SIDE OF THE BED. NO ACUTE DISTRESS SHOWN, SOB ONLY WITH EXERTION, ICE PROVIDED PER REQUEST. PROVIDES HOUSE NUMBER TO [facility] .
--- NOTE | 2020-01-16 21:30 | NUR ---
PATIENT PHONE FIXED AND I HAVE CALLED PT'S AND SPOKE TO HER, ASKED HER IF IT WAS EASIER FOR HER TO BRING A LIST THROUGH ER OR TELL ME THROUGH THE PHONE, REPORTS SHE CAN ONLY BRING THE LIST IN. I HAVE PASSED THE PATIENT PHONE TO PATIENT, HE IS NOW SITTING UP ON SIDE OF BED AND SPEAKING TO HIS . NO ACUTE DISTRESS SHOWN. CALL LIGHT WITHIN REACH.
--- NOTE | 2020-01-16 22:45 | NUR ---
PT MEAT PICKLER LIGHT, NEEDED ASSISTANCE TO PUT HOB DOWN SINCE BED CONTROL IS NOT FUNCTIONING. NO ACUTE DISTRESS SHOWN. REPSOITIONS HIMSELF TO LAY ON HIS RIGHT SIDE. NO OTHER NEEDS. CALL LIGHT WITHIN REACH.
[2020-01-17] VITALS (11 sets, daily range): BP systolic 87–131; BP diastolic 58–77
--- NOTE | 2020-01-17 02:30 | NUR ---
PT TUNS LIGHT ON AND USES URINAL, SITS ON SIDE OF BED, NOW LAYS BACK IN BED. NO ACUTE DISTRESS SHOWN. CALL LIGHT WITHIN REACH.
--- NOTE | 2020-01-17 03:52 | NUR ---
PT SITS ON SIDE OF BED. NO NEEDS AT THIS TIME. CALL LIGHT WITHIN REACH.
--- NOTE | 2020-01-17 05:14 | NUR ---
PT SITS ON RECLINER. C/O OF RIGHT BACK SIDE PAIN BY "RIB CAGE," TYLENOL GIVEN. PT REQUESTS "SOMETHING ELSE TO DRIK BESIDES WATER." DIET AHMET GALA PROVIDED. EMPTIED URINAL, URINE JD/CLOUDY. AFEBRILE. CALL LIGHT WITHIN REACH.
[2020-01-17] MEDS ORDERED: METOPROL TAR25 MG PO (07:27)
[2020-01-17] MEDS ORDERED: SPIRONOLACT50 MG PO (07:28)
[2020-01-17] MEDS ORDERED: ATORVASTATIN CA40 MG PO (07:28)
[2020-01-17] MEDS ORDERED: ALDACTONE25 MG PO (07:29)
[2020-01-17] MEDS ORDERED: NEURONTIN100 MG PO (07:30)
[2020-01-17] MEDS ORDERED: PROTONIX40 M2 PO (07:30)
[2020-01-17] MEDS ORDERED: PANTOPRAZOLE SO40 M3 PO ×2 (07:31→07:47)
[2020-01-17] MEDS ORDERED: ASPIRIN 8181 MG PO (07:32)
[2020-01-17] MEDS ORDERED: LASIX40 MG PO ×2 (07:33→07:46)
--- NOTE | 2020-01-17 07:47 | NUR ---
UPDATED PTS HOME MED REC FROM [facility] BROUGHT TO [facility] + PT
--- NOTE | 2020-01-17 08:42 | NUR ---
NOTIFIED DR OF PTS C/O RIGHT RIBCAGE PAIN.
--- NOTE | 2020-01-17 09:00 | NUR ---
PT REMOVING NC TO "REST HIS NOSE", 94-95% ON RA.
--- NOTE | 2020-01-17 09:05 | NUR ---
PT MEDICATED FOR CHRONIC LOWER BACK PAIN & ACUTE RIGHT SIDED RIB PAIN THAT RADIATES TO BACK/FLANK. PT STATES HE IS TRYING TO GET INTO PAIN MANAGEMENT BUT IS HAVING A HARD TIME D/T FREQUENT HOSPITALIZATIONS & NEW DX OF CANCER.
--- NOTE | 2020-01-17 09:07 | NUR ---
REPORT REC FROM Apolonia APONTE RN
--- NOTE | 2020-01-17 09:14 | NUR ---
REPORT GIVEN TO PARAMJIT YUEN ON [facility] FOR CONTINUATION OF CARE.
--- NOTE | 2020-01-17 09:22 | NUR ---
HOME MEDS SENT TO PHARMACY FOR HOLDING WHILE ADMITTED
--- NOTE | 2020-01-17 10:00 | NUR ---
BLOOD DRAWN & TAKEN TO LAB
[2020-01-17 10:05] LABS: HEMATOCRIT 38.6 % (39.0-50.0); HEMOGLOBIN 12.8 g/dl (14.0-18.0); IMMATURE GRANULOCYTES 0.9 % (0.0-5.0); MEAN CELL VOLUME 90.4 fL CALC (80.0-100.0); MEAN CORPUSCULAR HGB CONC 33.2 g/dL CAL (32.0-36.0); NEUT# 5.33 thou/uL (1.82-7.42); RED BLOOD COUNT 4.27 mill/uL (4.70-6.10); RED CELL DISTRI WIDTH 13.2 % (11.5-15.5)
[2020-01-17 10:33] LABS: ALBUMIN 3.7 g/dL (3.2-5.0); ALKALINE PHOSPHATASE 101 u/l (38-126); ANION GAP 13 (6-22 (CALC)); BILIRUBIN, TOTAL 0.8 mg/dL (0.0-1.4); BUN 15 mg/dL (8-23); BUN/CREATININE RATIO 26 (12-20 (CALC)); CALCULATED LDLCHOLESTEROL 74 mg/dL (62-129 (CALC)); CARBON DIOXIDE 31 mmol/l (22-30); CHLORIDE 95 mmol/l (95-108); CHOLESTEROL HDL RATIO 3.8 (<4.4 (CALC)); CREATININE 0.6 mg/dL (0.7-1.3); GFR > 60 ML/MIN (>=60 (CALC)); GFR FOR AFR.AMER. > 60 ML/MIN (>=60 (CALC)); HDL CHOLESTEROL 36 mg/dL (>=40); POTASSIUM 3.4 mmol/l (3.5-5.1); SGOT/AST 21 u/l (19-48); SODIUM 135 mmol/l (137-146); TOTAL PROTEIN 7.2 g/dL (6.3-8.2); TOTAL TRIGLYCERIDES 124 mg/dl (30-149); VLDL CHOLESTROL 25 mg/dl (4-45 (CALC))
[2020-01-17 10:34] LABS: TOTAL CHOLESTEROL 135 mg/dl (0-199)
--- NOTE | 2020-01-17 10:37 | NUR ---
PT ARRVIED TO MS VIA WC ACCOMPANIED BY JEFFY ARMSTRONG. PT A&O X3. NO DISTRESS NOTED. ORIENTED PT TO ROOM. PT DENIES ANY PAIN AT THIS TIME. ASSESSMENT COMPLETED. DISCUSSED POC. CALL LIGHT IN REACH. CONTINUE TO MONITOR
--- NOTE | 2020-01-17 12:22 | NUR ---
SPOKE TO ALIRIO IN PHARMACY, PHARMACY CONSULT ORDERED TO VERIFY MEDICATIONS
--- NOTE | 2020-01-17 12:41 | NUR ---
PT AMBULATING DOWN THE HALLWAY WITH MASK ACCOMPANIED BY JEFFY . O2% 98 THROUGHOUT WALK WITHOUT OXYGEN IN PLACE.
--- NOTE | 2020-01-17 12:43 | NUR ---
ALIRIO AT BEDSIDE COMPLETING PHARMACY CONSULT
[2020-01-17] MEDS ORDERED: TRESIBA FL200 UNIT/M SC (13:04)
--- NOTE | 2020-01-17 14:00 | NUR ---
PER AHMET IN ER HR 130
--- NOTE | 2020-01-17 14:21 | NUR ---
FEDERICO LEO IN ER PT SUSTAINING IN 130'S. ASSESSMENT COMPLETED ON PT. PT ASYMPTOMATIC JUST SITTING DOWN IN THE CHAIR WATCHING TV. APICAL PULSE TAKEN 133.
--- NOTE | 2020-01-17 14:32 | NUR ---
ORDERS PLACED FOR STAT EKG. VS OBTAINED. BP: 87/58, HR 138, O2 95 RA. RESULTS CALLED TO DR QUIROZ. PER RICHIE REPOSITION PT IN [place] POSITION AND RECHECK BP. IF BP IS STABLE METOPROLOL 12.5 SCHEDULED FOR TONIGHT TO BE GIVEN.
--- NOTE | 2020-01-17 15:04 | NUR ---
VS RECHECKED, BP 117/75, HR 139 O2 95%
--- NOTE | 2020-01-17 15:07 | NUR ---
CALL MADE TO DR QUIROZ, NO ANSWER. VOICEMAIL LEFT. AWAITING CALL BACK
--- NOTE | 2020-01-17 15:12 | NUR ---
ORDERS REC FROM DR QUIROZ; DILTIAZEM 120 MG PO ONE TIME DOSE NOW. ORDERS FAXED TO
--- NOTE | 2020-01-17 19:38 | NUR ---
PT C/O NEW ONSET CHEST PRESSURE AND APPEARS VERY SOB. PT STATES " I NEED HELP, SOMETHING IS WRONG". STAT EKG OBTAINED AT THIS TIME. ER PHYSICIAN TO VERIFY ST ELEVATION NOTED. STAT TROP ORDERED. ENVIRONMENTAL SERVICES TECHNICIAN PHYSICIAN NOTIFIED. ORDERS RECEIVED TO TRANSFER TO [facility] VIA AIR TRANSPORT. NOTIFIED PT OF FINDINGS AND TRANSPORT, PT VERBALIZED UNDERSTANDING. CURRENT VS 100/73, 93, 24, 93% ON 2L/M VIA NC, 96.8.
--- NOTE | 2020-01-17 19:50 | NUR ---
MENTAL HEALTH NURSE MADE AWARE OF TRANSFER.
--- NOTE | 2020-01-17 20:15 | NUR ---
ORDERS RECEIVED FROM DR. QUIROZ FOR TRANSFER TO [facility] FOR STEMI.
--- NOTE | 2020-01-17 20:20 | NUR ---
CALL PLACED TO DEDRICK CHANCE, NURSING VETERANS' COUNSELOR FOR TRANSFER, WITH ACCEPTING PHYSICIAN DR. JAVIER BONILLA, FERMENTER WINE.
--- NOTE | 2020-01-17 20:36 | NUR ---
NURSING SERVICE PLUMBER iVk ROSS, STATES THAT PATIENT WILL GOT TO GROUNDSKEEPING MAINTENANCE ON ARRIVAL, BUT EXTRUDING DEPARTMENT SUPERVISOR WANTS EVALUATED BY ER. PHYSICIAN DR. GARCIA. DR. QUIROZ NOTIFIED OF [place] TO CALL REPORT.
--- NOTE | 2020-01-17 20:59 | NUR ---
ORDERED ASPIRIN 325MG PO TO BE GIVEN STAT.
--- NOTE | 2020-01-17 21:07 | NUR ---
ACCEPTED BY [facility] HARRIS WITH 18 MIN ETA.
--- NOTE | 2020-01-17 21:08 | NUR ---
SPOKE WITH NURSING BUFFET WAITER/WAITRESS Vik ROSS. RECEIVED BED ASSIGNMENT IN ICU.
--- NOTE | 2020-01-17 21:39 | NUR ---
PT LEFT FACILITY IN STABLE CONDITION VIA [facility]ES[facility] FLIGHT. CURRENT VS 111/77,20,94,96.8, 96% ON 2L/M VIA NC.
== END 2020-01-17 21:39 ==
LOC: ED 14:06 → ED-I 18:18 → ED 18:33 → ICU 18:34 → MS2 01-17 10:28
PROVIDERS: ADMIT Internal Medicine; ATTEND Internal Medicine
DX: J18.9 Pneumonia, unspecified organism (principal); J44.0 Chronic obstructive pulmonary disease with (acute) lower respiratory infection; R94.31 Abnormal electrocardiogram [ECG] [EKG]; C34.90 Malignant neoplasm of unspecified part of unspecified bronchus or lung; J91.0 Malignant pleural effusion; E11.9 Type 2 diabetes mellitus without complications; E87.6 Hypokalemia; I11.0 Hypertensive heart disease with heart failure; I50.9 Heart failure, unspecified; I25.10 Atherosclerotic heart disease of native coronary artery without angina pectoris; E78.5 Hyperlipidemia, unspecified; K74.60 Unspecified cirrhosis of liver; E66.01 Morbid (severe) obesity due to excess calories; F17.210 Nicotine dependence, cigarettes, uncomplicated; Z95.5 Presence of coronary angioplasty implant and graft; Z79.84 Long term (current) use of oral hypoglycemic drugs; Z20.828 Contact with and (suspected) exposure to other viral communicable diseases
CPT/HCPCS: G0378; J1650; Q9967